=== PATIENT | female | born 1980 | race Caucasian/White ===

== ENCOUNTER 2018-06-04 09:42 | Emergency (ER) | payer MEDICAID ==
[2018-06-04 09:42] VITALS: BMI 43.5
[2018-06-04 10:01] VITALS: TEMP 99.1
--- NOTE | 2018-06-04 10:12 | ED PDOC ---
Arrival/HPI - General Historian: Patient - History of Present Illness Narrative History of Present Illness (Text): 06/04/18 10:09 38yo female right handed dominate female with no pmhx who present with complaint of laceration to her right index finger this morning. States she sustained the laceration, when the knife she was using to cut food cut her finger. Notes she is no up to date with her TD booster. Denies any other complaint. Have FROM of finger. <Abner Barker A - Last Filed: 06/04/18 10:56> <Ernesto Don - Last Filed: 06/04/18 11:01> - General Chief Complaint: Abnormal Skin Integrity Time Seen by Provider: 06/04/18 10:09 Past Medical History - Provider Review Nursing Documentation Reviewed: Yes - Infectious Disease Hx of Infectious Diseases: None - Psychiatric Hx Psychophysiologic Disorder: No Hx Substance Use: No - Anesthesia Hx Anesthesia: No Hx Anesthesia Reactions: No Hx Malignant Hyperthermia: No <Abner Barker A - Last Filed: 06/04/18 10:56> Family/Social History - Physician Review Nursing Documentation Reviewed: Yes Family/Social History: Unknown Family HX Smoking Status: Never Smoked Hx Alcohol Use: No Hx Substance Use: No <Abner Barker A - Last Filed: 06/04/18 10:56> Allergies/Home Meds <Abner Barker A - Last Filed: 06/04/18 10:56> <Ernesto Don - Last Filed: 06/04/18 11:01> Allergies/Adverse Reactions: Allergies No Known Allergies Allergy (Verified 06/04/18 09:57) Review of Systems - Physician Review All systems were reviewed & negative as marked: Yes - Review of Systems Constitutional: Normal Eyes: Normal ENT: Normal Respiratory: Normal Cardiovascular: Normal Gastrointestinal: Normal Genitourinary Female: Normal Musculoskeletal: Normal Skin: Laceration (Right 2nd finger) Neurological: Normal Endocrine: Normal Hemo/Lymphatic: Normal Psychiatric: Normal <Abner Barker A - Last Filed: 06/04/18 10:56> Physical Exam Vital Signs Reviewed: Yes Vital Signs Temp Pulse Resp BP Pulse Ox 06/04/18 09:57 99.1 F 110 H 16 128/85 98 Temperature: Afebrile Blood Pressure: Normal Pulse: Regular Respiratory Rate: Normal Appearance: Positive for: Well-Appearing, Non-Toxic, Comfortable Pain Distress: None Mental Status: Positive for: Alert and Oriented X 3 - Systems Exam Head: Present: Atraumatic, Normocephalic Pupils: Present: PERRL Extroacular Muscles: Present: EOMI Conjunctiva: Present: Normal Mouth: Present: Moist Mucous Membranes Neck: Present: Normal Range of Motion Respiratory/Chest: Present: Clear to Auscultation, Good Air Exchange. No: Respiratory Distress, Accessory Muscle Use Cardiovascular: Present: Regular Rate and Rhythm, Normal S1, S2. No: Murmurs Abdomen: No: Tenderness, Distention, Peritoneal Signs Back: Present: Normal Inspection Upper Extremity: Present: Normal Inspection. No: Cyanosis, Edema Lower Extremity: Present: Normal Inspection. No: Edema Neurological: Present: GCS=15, CN II-XII Intact, Speech Normal Skin: Present: Warm, Dry, Normal Color, Laceration (2.0cm curvlinear laceration on proximal volar aspect of right 2nd finger). No: Rashes Psychiatric: Present: Alert, Oriented x 3, Normal Insight, Normal Concentration <Diru,Happiness A - Last Filed: 06/04/18 10:56> Vital Signs Temp Pulse Resp BP Pulse Ox 06/04/18 11:00 99 06/04/18 10:59 88 17 127/80 99 06/04/18 09:57 99.1 F 110 H 16 128/85 98 <Ernesto Don - Last Filed: 06/04/18 11:01> Medical Decision Making ED Course and Treatment: 06/04/18 10:57 Pt presented to ED for stated history. Her lac was irrigated with NS. Approximated with 7 interrupted sutures. cleansed and bacitracine applied and dressed. Finger splint was placed to avoid vaso constrict with flexion of finger. Pt was NVI. No sign of tendon injury. TD booster was updated. She was given keflex for prophylaxis. Referred to her PMD Advised to keep wound clean and dry <Diru,Happiness A - Last Filed: 06/04/18 10:56> - Medication Orders Current Medication Orders: Discontinued Medications Acetaminophen (Tylenol 325mg Tab) 650 mg PO STAT STA Stop: 06/04/18 10:16 Last Admin: 06/04/18 10:58 Dose: 650 mg MAR Pain/Vitals Document 06/04/18 10:58 SF (Rec: 06/04/18 10:58 [place] [email or web address] [id number] Pain Reassessment Is This A Pain ReAssessment? Yes Sleep Is patient sleeping during reassessment? No Presence of Pain Presence of Pain Yes Tetanus/Reduced Diphtheria/Acell Pertussis (Boostrix Vaccine Inj) 0.5 ml IM .ONCE ONE Stop: 06/04/18 10:16 Last Admin: 06/04/18 10:58 Dose: 0.5 ml Immunization Registry Document 06/04/18 10:58 SF (Rec: 06/04/18 10:58 [place] [id number] Immunization Registry Consent Date 06/04/18 <Ernesto Don - Last Filed: 06/04/18 11:01> Procedure: Wound Repair - Consent Obtained Consent obtained: Verbal - Performed by Performed by: Mid-level Provider - Indications Indication(s):: Laceration - Location Finger:: Right, Index Shape:: Linear Dimensions Length cm: 2.0 Depth:: Epidermis - Anesthetic Technique Anesthetic Technique: Local Local/Regional Anesthetic:: Lidocaine 1% (5.0) - Debris Debris:: None - Irrigated Irrigated with ml of normal saline: 50 - Complexity Complexity:: Intermediate (2 layer) - Muscle repiar layer closed with Muscle repair layer closed with:: # (7), Size (5), Type (nylon), Technique (interrupted), Wound well approximated, Abx ointment applied, Dressing applied, Tetanus ordered - Patient tolerated procedure Patient Tolerated Procedure:: Well <MjHappiness A - Last Filed: 06/04/18 10:56> - PA / [employer] / Resident Statement / has reviewed & agrees with the documentation as recorded. <rEnesto Don - Last Filed: 06/04/18 11:01> Disposition/Present on Arrival - Present on Arrival Any Indicators Present on Arrival: No History of DVT/PE: No History of Uncontrolled Diabetes: No Urinary Catheter: No History of Decub. Ulcer: No History Surgical Site Infection Following: None - Disposition Have Diagnosis and Disposition been Completed?: Yes Disposition Time: 10:40 Patient Plan: Discharge <MjHappiness A - Last Filed: 06/04/18 10:56> <Ernesto Don - Last Filed: 06/04/18 11:01> - Disposition Diagnosis: Finger laceration Disposition: HOME/ ROUTINE Patient Problems: Current Active Problems Problem Status Onset Finger laceration Acute Condition: STABLE Discharge Instructions (ExitCare): Laceration Repair Additional Instructions: Keep wound clean and dry Follow up with your doctor in 10days for suture removal Return to ED for any redness,discharge from wound or fever Prescriptions: Cephalexin [cephalexin] 500 mg PO TID #15 cap Referrals: Angela Pina MD [Medical Doctor] - Follow up with primary Forms: [employer] (Yoruba)
[2018-06-04] MEDS ORDERED: TDAP Vaccine 0.5 mL Syr IM ONE (10:15)
[2018-06-04] MEDS ORDERED: Lidocaine 1% 5ml Abboject ONE (10:18)
[2018-06-04 11:01] VITALS: BP 127/80; PULSE 88; RESP 17; O2SAT 99
== END 2018-06-04 11:00 | disposition home or self-care (01) ==
LOC: ED 09:42
DX: S61.210A Laceration without foreign body of right index finger without damage to nail, initial encounter (principal); W26.0XXA Contact with knife, initial encounter; Y93.G1 Activity, food preparation and clean up; Y92.9 Unspecified place or not applicable; Z23 Encounter for immunization

== ENCOUNTER 2018-06-10 11:24 | Emergency (ER) | payer MEDICAID ==
[2018-06-10 11:25] VITALS: BMI 43.5
[2018-06-10 11:58] VITALS: BP 129/79; PULSE 88; RESP 16; TEMP 99.2; O2SAT 99
--- NOTE | 2018-06-10 12:12 | ED PDOC ---
Arrival/HPI - General Chief Complaint: Wound Check Time Seen by Provider: 06/10/18 12:04 Historian: Patient - History of Present Illness Narrative History of Present Illness (Text): 06/10/18 12:08 Patient states that on June 04 she sustained a laceration to her finger with a knife while cutting food. She was treated in the Emergency Room on that date and had stitches placed. She is here for wound check and possible suture removal. She denies any limitation with range of motion. Denies any redness, denies any pus or bleeding or swelling. Denies numbness or weakness. Past Medical History - Infectious Disease Hx of Infectious Diseases: None - Cardiac Hx Cardiac Disorders: No - Pulmonary Hx Respiratory Disorders: No - Neurological Hx Neurological Disorder: No - HEENT Hx HEENT Disorder: No - Renal Hx Renal Disorder: No - Endocrine/Metabolic Hx Endocrine Disorders: No - Hematological/Oncological Hx Blood Disorders: No - Integumentary Hx Dermatological Disorder: Yes Other/Comment: LACERATION - Musculoskeletal/Rheumatological Hx Musculoskeletal Disorders: No - Gastrointestinal Hx Gastrointestinal Disorders: No - Psychiatric Hx Psychophysiologic Disorder: No Hx Substance Use: No - Anesthesia Hx Anesthesia: No Hx Anesthesia Reactions: No Hx Malignant Hyperthermia: No Family/Social History Family/Social History: Unknown Family HX Smoking Status: Never Smoked Hx Alcohol Use: No Hx Substance Use: No Allergies/Home Meds Allergies/Adverse Reactions: Allergies No Known Allergies Allergy (Verified 06/10/18 11:53) Review of Systems - Review of Systems Constitutional: absent: Fevers Gastrointestinal: absent: Nausea Skin: absent: Rash, Abscess, Cellulitis Neurological: absent: Focal Weakness Hemo/Lymphatic: absent: Easy Bleeding Physical Exam Vital Signs Reviewed: Yes Vital Signs Temp Pulse Resp BP Pulse Ox 06/10/18 11:54 99.2 F 88 16 129/79 99 Temperature: Afebrile Appearance: Positive for: Well-Appearing, Non-Toxic, Comfortable - Systems Exam Head: Present: Atraumatic Pupils: Present: PERRL Mouth: Present: Moist Mucous Membranes Neck: Present: Normal Range of Motion Respiratory/Chest: No: Respiratory Distress Upper Extremity: Present: Other (there is healing laceration with sutures noted to index finger, no erythema or pus or drainage. There is full rango of motion at MCP, PIP, and DIP joint with no limitations.) Neurological: Present: Motor Func Grossly Intact, Normal Sensory Function, Other (median/radial/ulnar motor/sensory function intact) Psychiatric: Present: Alert Medical Decision Making ED Course and Treatment: 06/10/18 12:33 Prior visit was reviewed. SIX stitches were removed, only SIX were noted to be present after cleaning wound and re-inspection after suture removal. Wound is approximated well with no drainage or cellulitis noted. Patient will be discharged and is neurovascularly intact with no range of motion limitations. Disposition/Present on Arrival - Present on Arrival Any Indicators Present on Arrival: No History of DVT/PE: No History of Uncontrolled Diabetes: No Urinary Catheter: No History of Decub. Ulcer: No History Surgical Site Infection Following: None - Disposition Have Diagnosis and Disposition been Completed?: Yes Diagnosis: Visit for suture removal, Visit for wound check Disposition: HOME/ ROUTINE Disposition Time: 12:14 Patient Plan: Discharge Patient Problems: Current Active Problems Problem Status Onset Visit for suture removal Acute Visit for wound check Acute Condition: GOOD Discharge Instructions (ExitCare): Stitches Removal Additional Instructions: For any redness, swelling, numbness, weakness, pain, or any new or persistent symptoms, get rechecked. Follow-up with your physician as needed. Forms: [employer] (Bermudian)
== END 2018-06-10 12:43 | disposition home or self-care (01) ==
LOC: ED 11:24
DX: Z48.02 Encounter for removal of sutures (principal)